=== PATIENT | male | born 1975 | race Caucasian/White ===

== ENCOUNTER 2017-08-04 14:58 | Emergency (ER) | payer OTHER, SELFPAY ==
[~2017-08-04] VITALS: Ht 180.3 cm; Wt 88.6 kg
[~2017-08-04 14:58] MED LIST: CYCL1PAK PO; DILA4TAB10 PO; FISHCAP; GARL500T PO; HYDR-3129 PO; LEVA500T PO; LISI-363 PO; VENTAER INH; Z.0.WALKERFRONT
[2017-08-04 15:22] VITALS: BP 175/96; PULSE 59; RESP 18; TEMP 98.3; O2SAT 98
--- NOTE | 2017-08-04 21:03 | PD ---
Physical Exam Date Seen by Provider: Aug 04, 2017 Time Seen by Provider: 15:48 Narrative 42 year old male presents to the emergency department for evaluation of swelling , pain, and erythema to his left hand. He states he was sent by his PCP for evaluation. He also states he has low back pain. Pain is 8/10. Moderate severity. Data Data Last Documented VS Vital Signs Date Time Temp Pulse Resp B/P (MAP) Pulse Ox O2 Delivery O2 Flow Rate FiO2 08/04/17 15:22 98.3 59 18 175/96 (122) 98 MDM Supervised Visit with LORE: No Narrative Course 42 year old male presents to the emergency department for evaluation of erythema , swelling, and pain to his hand as well as back pain. Patient is initially seen in triage.. Work up is initiated. Patient left AMA before he could be moved to a medical bed. Diagnosis Primary Impression: Left against medical advice Patient Instructions: General Instructions Departure Forms: Tests/Procedures Disposition: 07 AGAINST MEDICAL ADVICE Pat Coffman Aug 04, 2017 21:03
== END 2017-08-04 15:48 | disposition left against medical advice (07) ==
LOC: NED 14:58
DX: M79.642 Pain in left hand (principal); R22.32 Localized swelling, mass and lump, left upper limb; L53.9 Erythematous condition, unspecified; M54.5 Low back pain; Z53.20 Procedure and treatment not carried out because of patient's decision for unspecified reasons
CPT/HCPCS: 99281